=== PATIENT | male | born 1990 | race Caucasian/White ===

== ENCOUNTER 2019-12-04 04:26 | Emergency (ER) | payer SELFPAY ==
[~2019-12-04] VITALS: Ht 172.7 cm; Wt 665.9 kg
[2019-12-04 04:30] VITALS: BP 131/78; Ht 172.7 cm; Wt 665.9 kg
== END 2019-12-04 06:10 | disposition home or self-care (01) ==
LOC: ED 04:26
DX: F41.9 Anxiety disorder, unspecified (principal); F15.20 Other stimulant dependence, uncomplicated

== ENCOUNTER 2020-05-18 19:44 | Emergency (ER) | payer SELFPAY ==
[~2020-05-18] VITALS: Ht 172.7 cm; Wt 72.6 kg
[2020-05-18 19:57] VITALS: Ht 172.7 cm; Wt 72.6 kg
[2020-05-18 21:14] VITALS: BP 133/87
== END 2020-05-18 21:14 | disposition home or self-care (01) ==
LOC: ED 19:44
DX: G56.01 Carpal tunnel syndrome, right upper limb (principal); J45.909 Unspecified asthma, uncomplicated
CPT/HCPCS: 82962; J1885; Q0092